=== PATIENT | female | born 1980 | race Caucasian/White ===

== ENCOUNTER 2018-08-23 20:45 | Emergency (ER) | payer OTHER ==
--- NOTE | 2018-08-23 21:10 | EDPHY ---
H & P Stated Complaint: dog bite to lip Source: Patient Exam Limitations: No limitations - Personal History LMP (Females 10-55): 15-21 Days Ago Current Tetanus Diphtheria and Acellular Pertussis (TDAP): Yes - Medical/Surgical History Hx Asthma: No Hx Chronic Respiratory Disease: No Hx Diabetes: No Hx Cardiac Disease: No Hx Renal Disease: No Hx Cirrhosis: No Hx Alcoholism: No Hx HIV/AIDS: No Hx Splenectomy or Spleen Trauma: No - Social History Smoking Status: Never smoked Time Seen by Provider: 08/23/18 21:09 HPI/ROS: HPI: This is a 38-year-old female who presents with Chief Complaint: Dog bite to lip. Location: Right lower lip Quality: Dog bite Duration: Prior to arrival Signs and Symptoms: + bleeding, no radiation, no numbness, no weakness, no tingling, no incontinence, no decreased range of motion, no swelling, + pain, no fever Timing: Acute Severity: Mild Context: Patient reports that her personal small dog who was recently treated from lymphoma and has a sore palms was sitting on her lap and she believes that she must of touched her pot and heard her and she reached up and bit her right lower lip. This injury occurred approximately 30 min to 1 hr prior to arrival. She reports that she felt some pain with the bite but minimal pain at this time. It did bleed but stopped with direct pressure. Reports tetanus is current. Dog is up-to-date on vaccinations including rabies. Modifying Factors: Direct pressure Comment: ROS: A comprehensive 10 system review of systems is otherwise negative aside from elements mentioned in the history of present illness. MEDICAL/SURGICAL/SOCIAL HISTORY: Medical history: Generally healthy. Does not take any regular medications. LMP 2-3 weeks ago. Surgical history: Denies Social history: Never smoked. Employed as a nurse. . CONSTITUTIONAL: Polite and cooperative adult white female, awake and alert, no obvious distress HEENT: normocephalic, PERRL, EOMI. no globe entrapment, no raccoon eyes. no Andrade signs.Tympanic membranes clear. No tympanic membrane rupture. Nares patent; no septal hematoma. Oropharynx clear, no exudate and moist pink mucosa. No malocclusion. no dental trauma. Airway patent. No lymphadenopathy. Wound will right lower lip shows approximately 1.5 cm superficial irregular not through and through, sparing vermilion border, bite/puncture site. No active bleeding. NECK: supple EXTREMITIES: 2/2 pulses, no deformities, no clubbing, no cyanosis or edema. NEUROLOGICAL: no focal neuro deficits. GCS 15. SKIN: Warm and dry, no erythema. no rash. Good capillary refill. (Natacha Winston) Constitutional: Initial Vital Signs Temperature (C) 36.3 C 08/23/18 20:52 Heart Rate 64 08/23/18 20:52 Respiratory Rate 20 08/23/18 20:52 Blood Pressure 145/84 H 08/23/18 20:52 O2 Sat (%) 98 08/23/18 20:52 O2 Delivery Mode Room Air Allergies/Adverse Reactions: latex [Latex] Allergy (Verified 05/05/12 08:27) Medical Decision Making ED Course/Re-evaluation: Tetanus is up-to-date LET topical applied and irrigated copiously Rabies prophylaxis not indicated. Steri-Strip applied for approximation Given Augmentin and prescription for same Spares vermilion border and not through and through Verbal and written wound care instructions provided This patient was seen under the supervision of my secondary supervising physician. I evaluated care for this patient independently. (Natacha Winston) Differential Diagnosis: Differential diagnosis includes but is not limited to dog bite, laceration, puncture wound. (Natacah Winston) Other Provider: The patient was evaluated and managed by the Physician Shingle Sawyer. My co- signature indicates that I have reviewed this chart and I agree with the findings and plan of care as documented. I am the secondary supervising physician. (Kimberly Mike) - Data Points Medications Given: Discontinued Medications Amoxicillin/Clavulanate Potassium (Augmentin 875mg) 875 mg PO EDNOW ONE PRN Reason: Protocol Stop: 08/23/18 21:16 Last Admin: 08/23/18 21:46 Dose: 875 mg Tetracaine/Epinephrine/Lidocaine (Let Gel Topical) 1 ea TP EDNOW ONE Stop: 08/23/18 21:14 Last Admin: 08/23/18 21:16 Dose: 1 ea Departure - Departure Disposition: Home, Routine, Self-Care Clinical Impression: Dog bite of skin of lip Condition: Good Instructions: Animal Bite (ED) Additional Instructions: Wash the site daily with mild soap and water; then pat dry. Take Tylenol 650 mg every 4 hours and/or Ibuprofen 600 mg every 8 hours with food as needed for pain. Take antibiotic as directed. Do not skip a dose. Apply ice for 30 minutes at a time; 2-3 times per day for the next 1-2 days. Allow Steri-Strips to fall off on its own. Follow-up with plastic surgery as needed for scar revision. Referrals: Marcelino Herrera JR, MD [Medical Doctor] - As per Instructions Prescriptions: Amoxicillin/Clavulanate Pot [Augmentin 875 MG TAB (*)] 875 mg PO BID #14 tab
[2018-08-23] MEDS ORDERED: LET GEL TOPICAL 1 EA SYR TP ONE (21:13)
[2018-08-23] MEDS ORDERED: AMOXICILLIN/CLAVULANATE POT 875/125 MG TAB PO ONE (21:15)
[2018-08-23 22:08] VITALS: BP 121/87
== END 2018-08-23 22:08 | disposition home or self-care (01) ==
DX: S01.531A Puncture wound without foreign body of lip, initial encounter (principal); W54.0XXA Bitten by dog, initial encounter; Y92.9 Unspecified place or not applicable; Y93.9 Activity, unspecified; Y99.9 Unspecified external cause status